=== PATIENT | male | born 1965 | race Caucasian/White ===

== ENCOUNTER 2022-12-22 21:01 | Emergency (ER) | payer MEDICAID, OTHER ==
[~2022-12-22] VITALS: Ht 180.3 cm; Wt 97.0 kg
[2022-12-22 21:07] VITALS: O2SAT 96
[2022-12-22] MEDS ORDERED: MORPHINE SULFATE 4 MG/ML CPJ (NOT FOR IM USE) IV STA (22:51)
[2022-12-22] MEDS ORDERED: ONDANSETRON HCL 4MG/2ML INJ IV STA (22:51)
[2022-12-22] MEDS ORDERED: SODIUM CHLORIDE 0.9% 1,000 ML IV ONE (23:00)
[2022-12-22] MEDS ORDERED: PIPERACILLIN/TAZ 3.375G PREMIX 50 ML IV ONE (23:00)
[2022-12-22] MEDS ORDERED: VANCOMYCIN 1G PREMIX 200 ML IV ONE (23:00)
[2022-12-22 23:22] LABS: CHLORIDE 92 mEq/L (98-107)
[2022-12-22 23:25] LABS: BASOPHILS % 0.5 % (0.0-2.0); EOSINOPHILS % 0.1 % (0.0-5.0); HEMATOCRIT. 28.2 % (42.0-52.0); INR 1.2; MEAN CORPUSCULAR HEMOGLOBIN 26.4 pg (28.0-32.0); MEAN CORPUSCULAR VOLUME 82.4 fL (80.0-94.0); MEAN PLATELET VOLUME 7.3 fl (7.4-10.4); MONOCYTES % 3.6 % (2.0-8.0); NEUTROPHILS % 84.8 % (40.0-76.0); PLATELET 470 x1000/uL (130-400); RED BLOOD CELL COUNT 3.42 mill/uL (4.7-6.1); RED CELL DISTRIBUTION WIDTH 19.8 % (11.6-14.6)
[2022-12-23] MEDS ORDERED: IOHEXOL-300 100 ML BOTTLE ONE (02:08)
[2022-12-23] MEDS ORDERED: MORPHINE SULFATE 4 MG/ML CPJ (NOT FOR IM USE) IV ONE (05:00)
[2022-12-23 05:18] VITALS: BP 124/89; PULSE 112; RESP 16; TEMP 99.8
== END 2022-12-23 06:01 | disposition short-term general hospital (02) ==
LOC: ER 21:01 → CANBEDREQ 12-24 20:46
DX: S21.109A Unspecified open wound of unspecified front wall of thorax without penetration into thoracic cavity, initial encounter (principal); J39.1 Other abscess of pharynx; Z20.822 Contact with and (suspected) exposure to COVID-19; Z79.899 Other long term (current) drug therapy; X58.XXXA Exposure to other specified factors, initial encounter; Y93.89 Activity, other specified; Y92.89 Other specified places as the place of occurrence of the external cause; Y99.8 Other external cause status
CPT/HCPCS: 36415; 71045; 71260; 80053; 83605; 84145; 84484; 85025; 85610; 87040; 87077; 87186; 87426; 93005; 96365; 96375; 96376; 99291; C9803; J2270; J2405; J2543; J3370; J7030; Q9967